=== PATIENT | female | born 1965 | race Caucasian/White ===

== ENCOUNTER → 2017-12-04 | Outpatient (CLI) | payer BC ==
--- NOTE | 2017-12-04 11:39 | MM ---
Reason for exam: screening (asymptomatic). Last mammogram was performed 2 years and 5 months ago. History: Patient is nulliparous. Took hormonal contraceptives for 1 year beginning at age 47. Taking estrogen for 2 years beginning at age 50. Taking progesterone for 2 years beginning at age 50. Physical Findings: A clinical breast exam by your physician is recommended on an annual basis and results should be correlated with mammographic findings. MG Screening Mammo w CAD Bilateral CC, MLO, and XCCL view(s) were taken. Prior study comparison: June 23, 2015, bilateral MG 3d screening mammo w/cad. May 24, 2014, bilateral MG screening mammo w CAD. The breast tissue is heterogeneously dense. This may lower the sensitivity of mammography. No suspicious abnormality. No significant changes when compared with prior studies. ASSESSMENT: Negative, BI-RAD 1 RECOMMENDATION: Routine screening mammogram of both breasts in 1 year.
== END ==
LOC: RADMAMWWP 07:40
PROVIDERS: ATTEND Family Medicine
DX: Z12.31 Encounter for screening mammogram for malignant neoplasm of breast (principal)
CPT/HCPCS: 77067

== ENCOUNTER → 2019-02-24 | Outpatient (CLI) | payer BC ==
--- NOTE | 2019-02-25 13:56 | MM ---
Reason for exam: screening (asymptomatic). Last mammogram was performed 1 year and 3 months ago. History: Patient is nulliparous. Took hormonal contraceptives for 1 year beginning at age 47. Taking estrogen for 2 years beginning at age 50. Taking progesterone for 2 years beginning at age 50. Physical Findings: A clinical breast exam by your physician is recommended on an annual basis and results should be correlated with mammographic findings. MG Screening Mammo w CAD Bilateral CC and MLO view(s) were taken. Prior study comparison: December 04, 2017, bilateral MG screening mammo w CAD. June 23, 2015, bilateral MG 3d screening mammo w/cad. The breast tissue is heterogeneously dense. This may lower the sensitivity of mammography. Finding #1: There is a 7 mm equal density (isodense), obscured mass in the upper inner quadrant of the right breast. Finding #2: There are indeterminate grouped/clustered calcifications in the central position of the left breast. ASSESSMENT: Incomplete: need additional imaging evaluation, BI-RAD 0 RECOMMENDATION: Special view mammogram of both breasts. If lesion persists on supplemental views, image directed ultrasound is recommended. [facility] will attempt to contact patient to return for supplemental views and ultrasound if indicated.
== END | disposition home or self-care (01) ==
LOC: RADMAMWWP 11:27
PROVIDERS: ATTEND Family Medicine
DX: Z12.31 Encounter for screening mammogram for malignant neoplasm of breast (principal)
CPT/HCPCS: 77067

== ENCOUNTER → 2019-03-09 | Outpatient (CLI) | payer BC ==
--- NOTE | 2019-03-10 08:59 | MM ---
Reason for exam: additional evaluation requested from abnormal screening. Last mammogram was performed less than 1 month ago. History: Patient is nulliparous. Took hormonal contraceptives for 1 year beginning at age 47. Taking estrogen for 2 years beginning at age 50. Taking progesterone for 2 years beginning at age 50. Physical Findings: Nurse did not find any significant physical abnormalities on exam. MG Work Up Mamm w CAD BILAT Bilateral LM view(s) were taken. Spot compression CC and spot compression MLO view(s) were taken of the right breast. CC with magnification and LM with magnification view(s) were taken of the left breast. Prior study comparison: February 24, 2019, bilateral MG screening mammo w CAD. December 04, 2017, bilateral MG screening mammo w CAD. Finding #1: There is a 8 mm indistinct oval mass located 3 cm from the nipple in the upper inner quadrant, anterior position of the right breast. Finding #2: There are indeterminate grouped and regional heterogeneous calcifications in the left breast. These results were verbally communicated with the patient and result sheet given to the patient on 03/09/19. ASSESSMENT: Suspicious, BI-RAD 4 Suspicious, BI-RAD 4 abnormality in the left breast. Incomplete: need additional imaging evaluation, BI-RAD 0 of the right breast. RECOMMENDATION: Ultrasound of the right breast. Stereotactic core biopsy of the left breast. (1-2 sites) Called Dr. Bruce with mammographic findings and has scheduled an appointment for the patient for 03/26/19 at 10:[address] Treadwell. Biopsy scheduled for 04/01/19 at 8:00. PRELIMINARY REPORT CALLED AND FAXED TO DR. TREADWELL ON 03/10/19.
--- NOTE | 2019-03-10 09:00 | USB ---
Reason for exam: additional evaluation requested from abnormal screening. History: Patient is nulliparous. Took hormonal contraceptives for 1 year beginning at age 47. Taking estrogen for 2 years beginning at age 50. Taking progesterone for 2 years beginning at age 50. US Breast Workup Limited RT Right limited breast ultrasound including focal area of concern, retroareolar and axilla demonstrates a 8 x 3 x 6mm oval, lobular, cystic lesion at 3 o'clock. These results were verbally communicated with the patient and result sheet given to the patient on 03/09/19. ASSESSMENT: Probably benign, BI-RAD 3 RECOMMENDATION: Ultrasound of the right breast in 6 months.
== END | disposition home or self-care (01) ==
LOC: RADMAMWWP 13:24
PROVIDERS: ATTEND Family Medicine
DX: R92.8 Other abnormal and inconclusive findings on diagnostic imaging of breast (principal)
CPT/HCPCS: 77066

== ENCOUNTER → 2019-03-25 | Outpatient (CLI) | payer BC ==
[2019-03-25 11:58] VITALS: BP 113/70; PULSE 69; RESP 16; TEMP 97.8; BMI 31.3
--- NOTE | 2019-03-25 12:26 | P.GSHP ---
History of Present Illness H&P Date: 03/25/19 Chief Complaint: Abnormal radiographic findings The patient is a 53-year-old white female who had a routine mammogram performed on 8718. This was felt to be incomplete and additional views of both breasts were recommended as well as an ultrasound of the right breast. On additional views it was felt that there was an 8 mm indistinct mass in the right breast for which ultrasound was recommended and ultrasound revealed a cystic lesion for which repeat right breast ultrasound in 6 months was recommended. In the left breast there were indeterminate group in regional heterogeneous calcifications. Stereotactic core biopsy of one possibly 2 areas in the left breast were recommended. The patient has not felt anything in her breasts. She gets yearly mammograms. She does not complain of any nipple discharge or skin changes. She has not had any history of trauma or infection in the breast. She has not had any breast biopsies. Family history: cousin maternal: leukemia maternal uncle: prostate cancer, bladder cancer, skin cancer father: prostate, skin cancer Hormonal history: Menarche:10 G1 etopic, no children menopause: 53 BCP: 20 years hormones: on estradiol patch for 2 years, progesterone 2 years; was having hot flashes Past Surgical History: 1. ectopic 2. foot surgery Past Medical History: HTN Social History: smoke: none alcohol: occasional drugs: none - Constitutional Comment: taking hormones Constitutional: Reports sweats - EENT Eyes: denies blurred vision, denies pain Ears: deny: decreased hearing, tinnitus Ears, nose, mouth and throat: Denies headache, Denies sore throat - Breasts Breasts: bilateral: as per HPI - Cardiovascular Cardiovascular: Reports high blood pressure, Denies chest pain, Denies shortness of breath - Respiratory Respiratory: Denies cough, Denies 7 - Gastrointestinal Gastrointestinal: Denies abdominal pain, Denies diarrhea, Denies nausea, Denies vomiting - Genitourinary (Female) Genitourinary: Denies dysuria, Denies hematuria - Menstruation Menstruation: Reports postmenopausal - Musculoskeletal Comment: arthritis Musculoskeletal: Reports myalgias - Integumentary Integumentary: Denies pruritus, Denies rash - Neurological Neurological: Denies numbness, Denies weakness - Psychiatric Psychiatric: Reports anxiety - Endocrine Endocrine: Denies fatigue, Denies weight change - Hematologic/Lymphatic Comment: none - Allergic/Immunologic Allergic/Immunologic: Reports as per HPI Past Medical History Past Medical History: No Reported History History of Any Multi-Drug Resistant Organisms: None Reported Past Surgical History: Orthopedic Surgery Additional Past Surgical History / Comment(s): left foot surgery, surgery for ectopic Past Anesthesia/Blood Transfusion Reactions: Motion Sickness Smoking Status: Never smoker Past Alcohol Use History: Occasional - Past Family History Father Family Medical History: Cancer Medications and Allergies Home Medications Medication Instructions Recorded Confirmed Type Chlorthalidone 25 mg PO DAILY 03/23/19 03/25/19 History Estradiol [Estradiol 0.05 MG Patch] 1 patch TRANSDERM WEEKLY 03/23/19 03/25/19 History Lisinopril [Zestril] 5 mg PO DAILY 03/23/19 03/25/19 History Progesterone, Micronized 100 mg PO HS 03/23/19 03/25/19 History [Progesterone] Multivitamin [Multivitamins Adult 1 each PO DAILY 03/25/19 03/25/19 History Gummies] Allergies Allergy/AdvReac Type Severity Reaction Status Date / Time No Known Allergies Allergy Verified 03/25/19 11:53 Surgical - Exam Vital Signs Temp Pulse Resp BP Pulse Ox 97.8 F 69 16 113/70 97 03/25/19 11:55 03/25/19 11:55 03/25/19 11:55 03/25/19 11:55 03/25/19 11:55 BMI 31.3 - General well developed, well nourished, no distress - Eyes normal ocular movement - ENT no hearing loss, no congestion - Neck no masses, trachea midline - Respiratory normal respiratory effort, clear to auscultation - Cardiovascular Rhythm: regular Heart Sounds: normal: S1, S2 - Abdomen Abdomen: soft, non tender, no guarding, no rigid, no rebound - Integumentary normal turgor - Neurologic no disoriented, no combative - Musculoskeletal normal gait, normal posture - Psychiatric oriented to time, oriented to person, oriented to place, speech is normal, memory intact Breast exam: Right breast: Multiple positional exam fibrocystic changes, no dominant masses or nodules of concern, but dense breast Right axilla: No adenopathy of concern Left breast: Multiple positional exam fibrocystic changes, ends breast no dominant masses or nodules of concern Left axilla: No adenopathy of concern Results Mammogram and ultrasound results reviewed Assessment and Plan Assessment: Impression: 1. Fibrocystic breast changes 2. Abnormal mammogram left breast, abnormal ultrasound right breast 3. Family history of cancer 4. Hypertension Plan: 1. Right breast repeat ultrasound in 6 months with physician exam at that time 2. Left breast stereotactic core biopsy of one possibly 2 sites to be determined on the day of the biopsy 3. Medical management of medical conditions Cc: Dr. Bruce The risk and benefits of stereotactic core biopsy discussed with the patient and she wishes to proceed.
--- NOTE | 2019-03-25 12:29 | P.PN ---
Progress Note - Text Progress Note Date: 03/25/19 We have discussed the fact that she is taking hormone therapy, she is going to stop hormone therapy until after results of the biopsy come back.
== END ==
LOC: WWCWWP 11:46
PROVIDERS: ATTEND Surgery
DX: Z53.9 Procedure and treatment not carried out, unspecified reason (principal)

== ENCOUNTER → 2019-04-01 | Day surgery (SDC) | payer BC ==
[2019-04-01 07:23] VITALS: RESP 16; BMI 31.3
--- NOTE | 2019-04-01 09:10 | P.PCN ---
Date of Procedure: 04/01/19 Preoperative Diagnosis: Abnormal mammogram left breast Postoperative Diagnosis: same, 2 areas of microcalcification of concern Procedure(s) Performed: Stereotactic core biopsy 2 areas of concern left breast Anesthesia: local Surgeon: Tatyana Treadwell Estimated Blood Loss (ml): 1 Pathology: other (Breast tissue) Condition: stable Disposition: same day Indications for Procedure: Microcalcifications of concern 2 areas left breast Operative Findings: Microcalcifications of concern noted in the biopsy specimens Description of Procedure: The patient had a mammogram revealing microcalcifications of concern in the left breast. 2 areas were recommended for targeting and stereotactic core biopsy. The risk and benefits of the procedure were discussed with the patient and she wished to proceed. The patient was brought to the stereotactic core biopsy room and positioned on the lo-rad table. A rrt film was obtained. The lesions of concern were identified. 2 areas of concern were targeted CBC The most posterior site was approached first. The needle was driven to the correct coordinates. The skin was prepped using Betadine. 20 mL of 1% lidocaine were used to anesthetize the area of concern. A 9-gauge vacuum assisted rotating core biopsy needle was driven to the correct coordinates. 12 core biopsies were obtained. Radiograph of the specimen revealed microcalcifications were in the specimen and the area had been adequately sampled. A Top-lining marker was placed. The needle was withdrawn. The needle was then noted and able to the second targeted area. The area was anesthetized using 25 mL of lidocaine. The needle was driven to the correct coordinates. 12 core biopsies were obtained. Radiograph of the specimen revealed microcalcifications in the specimen indicating that the area had been adequately targeted. A tri-bessie marker was placed. The markers were noted to be in the correct location. The patient tolerated the procedure in stable condition. The specimens were sent to pathology. The patient will follow with Dr. Lockhart next week. There were no immediate postoperative complications.
[2019-04-01 09:51] VITALS: BP 129/78; PULSE 81; TEMP 98
--- NOTE | 2019-04-01 10:04 | MM ---
EXAMINATION TYPE: MG stereo VAD BX LT, MG stereo VAD BX addl LT DATE OF EXAM: 04/01/2019 COMPARISON: Prior mammogram March 09, 2019 and older mammograms. CLINICAL HISTORY: Abnormal mammogram. TECHNIQUE: Stereotactic guided core biopsy of left breast 2 sites. FINDINGS: The procedure of stereotactic guided core biopsy was explained to the patient. Benefits, alternatives, and risks were discussed. An informed consent was then obtained. Calcifications are centrally in the breast making ideal pathway not as important. I performed the localization, then surgeon, Dr. Treadwell performed the remainder of the procedure. A vacuum assisted biopsy gun was used to obtain multiple core samples. The patient tolerated the procedure well without any immediate complication. The patient was kept in the radiology department for short stay after the procedure and then discharged home in stable condition. Calcifications are identified in specimen mammogram. Post biopsy mammogram shows placement of 2 biopsy clips, cavities from biopsy are noted in close proximity on cc view but somewhat farther apart on true lateral image. I was not present nor performed procedure, there may be 3 biopsy cavities. This would only be important if pathology results are not benign. Some residual regional calcifications centrally in the left breast are present. IMPRESSION: SUCCESSFUL, UNCOMPLICATED STEREOTACTIC GUIDED CORE BIOPSY OF AREA OF CONCERN IN THE LEFT BREAST, FULL PATHOLOGY RESULTS TO FOLLOW. Low to intermediate index of suspicion noted at time of procedure. Pathology Results: Malignant A. LEFT BREAST, SITE A POSTERIOR, CORE BIOPSY: Ductal carcinoma in situ (DCIS), Grade 2 with associated calcifications. See Surgical Pathology Cancer Case Summary and Comment. B. LEFT BREAST, SITE B ANTERIOR, CORE BIOPSY: Ductal carcinoma in situ (DCIS), Grade 2 with associated calcifications. See Surgical Pathology Cancer Case Summary. Recommendation Surgical consult of the left breast. Length of calcifications, 5cm, unlikely candidate for conservative treatment. MTDD
== END ==
LOC: RADMAMWWP 06:45
PROVIDERS: ATTEND Surgery
DX: D05.12 Intraductal carcinoma in situ of left breast (principal)
CPT/HCPCS: 88305; 88342; 88341; 19081; 19082; A4648; J2001

== ENCOUNTER → 2019-04-09 | Outpatient (CLI) | payer BC ==
[2019-04-09 09:03] VITALS: BP 118/81; PULSE 72; RESP 16; TEMP 97.8; BMI 31.3
--- NOTE | 2019-04-09 10:13 | P.PN ---
Subjective Progress Note Date: 04/09/19 Principal diagnosis: multifocal DCIS The patient is a 53-year-old white female who had a routine mammogram performed on 8718. This was felt to be incomplete and additional views of both breasts were recommended as well as an ultrasound of the right breast. On additional views it was felt that there was an 8 mm indistinct mass in the right breast for which ultrasound was recommended and ultrasound revealed a cystic lesion for which repeat right breast ultrasound in 6 months was recommended. In the left breast there were indeterminate group in regional heterogeneous calcifications. Stereotactic core biopsy of one possibly 2 areas in the left breast were recommended. The patient has not felt anything in her breasts. She gets yearly mammograms. She does not complain of any nipple discharge or skin changes. She has not had any history of trauma or infection in the breast. She has not had any breast biopsies. fStero tactic core biopsy of two areas in [facility] left breast were preformed on 04-01-19. Pathology from both of the sites was positive for DCIS. Family history: cousin maternal: leukemia maternal uncle: prostate cancer, bladder cancer, skin cancer father: prostate, skin cancer Hormonal history: Menarche:10 G1 etopic, no children menopause: 53 BCP: 20 years hormones: on estradiol patch for 2 years, progesterone 2 years; was having hot flashes Past Surgical History: 1. ectopic 2. foot surgery Past Medical History: HTN Social History: smoke: none alcohol: occasional drugs: none - Constitutional Comment: taking hormones Constitutional: Reports sweats - EENT Eyes: denies blurred vision, denies pain Ears: deny: decreased hearing, tinnitus Ears, nose, mouth and throat: Denies headache, Denies sore throat - Breasts Breasts: bilateral: as per HPI - Cardiovascular Cardiovascular: Reports high blood pressure, Denies chest pain, Denies shortness of breath - Respiratory Respiratory: Denies cough, Denies 7 - Gastrointestinal Gastrointestinal: Denies abdominal pain, Denies diarrhea, Denies nausea, Denies vomiting - Genitourinary (Female) Genitourinary: Denies dysuria, Denies hematuria - Menstruation Menstruation: Reports postmenopausal - Musculoskeletal Comment: arthritis Musculoskeletal: Reports myalgias - Integumentary Integumentary: Denies pruritus, Denies rash - Neurological Neurological: Denies numbness, Denies weakness - Psychiatric Psychiatric: Reports anxiety - Endocrine Endocrine: Denies fatigue, Denies weight change - Hematologic/Lymphatic Comment: none - Allergic/Immunologic Allergic/Immunologic: Reports as per HPI Past Medical History Past Medical History: No Reported History History of Any Multi-Drug Resistant Organisms: None Reported Past Surgical History: Orthopedic Surgery Additional Past Surgical History / Comment(s): left foot surgery, surgery for ectopic Past Anesthesia/Blood Transfusion Reactions: Motion Sickness Smoking Status: Never smoker Past Alcohol Use History: Occasional - Past Family History Father Family Medical History: Cancer Objective - Vital Signs Vital signs: Vital Signs Temp 97.8 F 04/09/19 08:55 Pulse 72 04/09/19 08:55 Resp 16 04/09/19 08:55 BP 118/81 04/09/19 08:55 Pulse Ox Intake & Output 04/08/19 04/09/19 04/09/19 18:59 06:59 18:59 Weight 90.718 kg - Exam BMI 31.1 - Constitutional General appearance: Present: obese - EENT Eyes: Present: EOMI ENT: Present: hearing grossly normal - Neck Neck: Present: normal ROM - Respiratory Respiratory: bilateral: CTA - Cardiovascular Rhythm: regular Heart sounds: normal: S1, S2 - Integumentary Integumentary: Present: normal turgor - Musculoskeletal Musculoskeletal: Present: gait normal - Psychiatric Psychiatric: Present: A&O x's 3, appropriate affect, intact judgment & insight - Additional findings Additional findings: Left breast: Biopsy site clean and dry no Evidence of infection Assessment and Plan Assessment: Impression: 1. 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 Family history of cancer 3. Hypertension I showed the patient her mammogram. We have reviewed in detail ductal carcinoma in situ and the treatment options. Secondary to the fact that she has a small b reast and the disease appears to be multifocal appreciated a better cosmetic result with mastectomy and reconstruction than an attempt at lumpectomy which would need to be extensive and radiation therapy. We have also talked about sentinel node biopsy and this will most likely be offered secondary to the multifocal nature of the disease. The patient does not want radiation therapy and would rather have a mastectomy. We are going to schedule her to see the plastic surgeon. Her case is going to be presented at tumor board. We have discussed nipple sparing mastectomy versus skin sparing mastectomy and we will make a decision after she was seen by plastic surgery. Plan: 1. The platelet Dr. Jarrett 2. Presentation at tumor board 3. Mastectomy with immediate reconstruction, sentinel node biopsy was discussed and we'll most likely be performed secondary to the multifocal nature of the disease. CC. Dr. Bruce
== END | disposition home or self-care (01) ==
LOC: WWCWWP 08:46
PROVIDERS: ATTEND Surgery
DX: Z53.9 Procedure and treatment not carried out, unspecified reason (principal)

== ENCOUNTER → 2019-05-07 | Day surgery (SDC) | payer BC ==
[2019-05-07 10:59] VITALS: RESP 16; TEMP 98.1; BMI 30.4
[2019-05-07 12:17] VITALS: BP 112/79; PULSE 78
--- NOTE | 2019-05-07 12:20 | USB ---
EXAMINATION TYPE: US biopsy breast VAD RT, MG diagnostic mammo RT wo CAD DATE OF EXAM: 05/07/2019 CLINICAL HISTORY: R92.8 Abnormal Mammogram. TECHNIQUE: Ultrasound guided core biopsy of right breast. COMPARISON: Right breast ultrasound dated 03/09/2019 FINDINGS: The procedure of ultrasound guided core biopsy was explained to the patient. Benefits, alternatives, and risks were discussed. An informed consent was then obtained. Preprocedural timeout was performed. The patient was placed in supine positioning for imaging and for the procedure. The overlying skin was prepped and draped in usual sterile fashion. 20 cc of 1% lidocaine was used as anesthetic into the skin and subcutaneous tissue up to the taller than wide 8mm lobular cystic mass at the 3:00 position in the right breast. Under ultrasound guidance, a 12-gauge vacuum assisted biopsy gun device was used to obtain 3 core samples with focal collapse of the cystic structure on second biopsy pass. Following this, a ribbon-shaped biopsy marker was left at the site of biopsy. Postprocedure mammogram demonstrates appropriate biopsy marker placement The patient tolerated the procedure well without any immediate complication. The patient was kept in the radiology department for short stay after the procedure and then discharged home in stable condition. IMPRESSION: Successful, uncomplicated ultrasound guided core biopsy of an 8 mm taller than wide cystic mass at the 3:00 position in the right breast breast, full pathology results to follow. Pathology Results: Benign RIGHT BREAST, 3:00, ULTRASOUND GUIDED CORE BIOPSY: Fibrocystic changes including apocrine cyst and fibrosis. Recommendation Follow up mammogram of the right breast in 6 months. GERRY
== END | disposition home or self-care (01) ==
LOC: RADUSWWP 10:34
PROVIDERS: ATTEND Surgery
DX: N60.11 Diffuse cystic mastopathy of right breast (principal)
CPT/HCPCS: 88305; 77065; 19083; A4648; J2001

== ENCOUNTER → 2019-05-27 | Outpatient (CLI) | payer BC ==
--- NOTE | 2019-05-27 08:52 | P.PN ---
Subjective multifocal DCIS The patient is a 53-year-old white female who had a routine mammogram performed on 8718. This was felt to be incomplete and additional views of both breasts were recommended as well as an ultrasound of the right breast. On additional views it was felt that there was an 8 mm indistinct mass in the right breast for which ultrasound was recommended and ultrasound revealed a cystic lesion for which repeat right breast ultrasound in 6 months was recommended. In the left breast there were indeterminate group in regional heterogeneous calcifications. Stereotactic core biopsy of one possibly 2 areas in the left breast were recommended. The patient has not felt anything in her breasts. She gets yearly mammograms. She does not complain of any nipple discharge or skin changes. She has not had any history of trauma or infection in the breast. She has not had any breast biopsies. Stero tactic core biopsy of two areas in the left breast were preformed on 04-01-19. Pathology from both of the sites was positive for DCIS. In the right breast there was an area of concern and she underwent ultrasound- guided core biopsy of this area. Ultrasound core biopsy revealed benign fibrocystic disease. The patient has met with plastic surgery and wishes bilateral mastectomy to be preformed. Family history: cousin maternal: leukemia maternal uncle: prostate cancer, bladder cancer, skin cancer father: prostate, skin cancer Hormonal history: Menarche:10 G1 etopic, no children menopause: 53 BCP: 20 years hormones: on estradiol patch for 2 years, progesterone 2 years; was having hot flashes Past Surgical History: 1. ectopic 2. foot surgery Past Medical History: HTN Social History: smoke: none alcohol: occasional drugs: none - Constitutional Comment: taking hormones Constitutional: Reports sweats - EENT Eyes: denies blurred vision, denies pain Ears: deny: decreased hearing, tinnitus Ears, nose, mouth and throat: Denies headache, Denies sore throat - Breasts Breasts: bilateral: as per HPI - Cardiovascular Cardiovascular: Reports high blood pressure, Denies chest pain, Denies shortness of breath - Respiratory Respiratory: Denies cough, Denies 7 - Gastrointestinal Gastrointestinal: Denies abdominal pain, Denies diarrhea, Denies nausea, Denies vomiting - Genitourinary (Female) Genitourinary: Denies dysuria, Denies hematuria - Menstruation Menstruation: Reports postmenopausal - Musculoskeletal Comment: arthritis Musculoskeletal: Reports myalgias - Integumentary Integumentary: Denies pruritus, Denies rash - Neurological Neurological: Denies numbness, Denies weakness - Psychiatric Psychiatric: Reports anxiety - Endocrine Endocrine: Denies fatigue, Denies weight change - Hematologic/Lymphatic Comment: none - Allergic/Immunologic Allergic/Immunologic: Reports as per HPI Past Medical History Past Medical History: No Reported History History of Any Multi-Drug Resistant Organisms: None Reported Past Surgical History: Orthopedic Surgery Additional Past Surgical History / Comment(s): left foot surgery, surgery for ectopic Past Anesthesia/Blood Transfusion Reactions: Motion Sickness Smoking Status: Never smoker Past Alcohol Use History: Occasional - Past Family History Father Family Medical History: Cancer Objective - Constitutional General appearance: Present: average body habitus - EENT Eyes: Present: EOMI ENT: Present: hearing grossly normal - Respiratory Respiratory: bilateral: CTA - Cardiovascular Rhythm: regular Heart sounds: normal: S1, S2 - Gastrointestinal General gastrointestinal: Present: soft - Integumentary Integumentary: Present: normal turgor - Musculoskeletal Musculoskeletal: Present: gait normal - Psychiatric Psychiatric: Present: A&O x's 3, appropriate affect, intact judgment & insight - Additional findings Additional findings: breast exam: right breast: no infection, no masses right axilla: no adenopathy of concern left breast : no masses left axilla: no adenopathy of concern Assessment and Plan Assessment: Impression: 1. left breast multifocal DCIS 2. right breast fibrocystic disease Plan: 1. bilateral skinsparing mastectomy and reconstruction 2. left sentinal node biopsy Risk and benefits discussed with the patient and she wishes to proceed. CC: DR. Bruce
--- NOTE | 2019-05-27 10:25 | ECHOF ---
Referral Reason:R94.31 Abn EKG MEASUREMENTS -------- HEIGHT: 170.2 cm WEIGHT: 93.0 kg BP: 112/6 RVIDd: 3.0 cm (< 3.3) IVSd: 1.1 cm (0.6 - 1.1) LVIDd: 4.1 cm (3.9 - 5.3) LVPWd: 0.9 cm (0.6 - 1.1) IVSs: 1.5 cm LVIDs: 2.5 cm LVPWs: 1.5 cm LA Diam: 3.4 cm (2.7 - 3.8) LAESV Index (A-L): 16.19 ml/m Ao Diam: 3.0 cm (2.0 - 3.7) AV Cusp: 2.1 cm (1.5 - 2.6) MV EXCURSION: 18.221 mm (> 18.000) MV EF SLOPE: 110 mm/s (70 - 150) EPSS: 0.5 cm MV E Alex: 0.58 m/s MV DecT: 191 ms MV A Alex: 0.56 m/s MV E/A Ratio: 1.05 RAP: 5.00 mmHg RVSP: 26.36 mmHg FINDINGS -------- Sinus rhythm. This was a technically adequate study. The left ventricular size is normal. There is borderline concentric left ventricular hypertrophy. Overall left ventricular systolic function is normal with, an EF between 60 - 65 %. The right ventricle is normal in size. Normal LA size by volume 22+/-6 ml/m2. The right atrium is normal in size. Interatrial and interventricular septum intact. The aortic valve is trileaflet and appears structurally normal. The mitral valve is normal. Mild tricuspid regurgitation present. Right ventricular systolic pressure is normal at < 35 mmHg. There is no pulmonic regurgitation present. The aortic root size is normal. IVC Not well visulized. There is no pericardial effusion. CONCLUSIONS -------- 1. Sinus rhythm. 2. This was a technically adequate study. 3. The left ventricular size is normal. 4. There is borderline concentric left ventricular hypertrophy. 5. Overall left ventricular systolic function is normal with, an EF between 60 - 65 %. 6. The right ventricle is normal in size. 7. Normal LA size by volume 22+/-6 ml/m2. 8. The right atrium is normal in size. 9. Interatrial and interventricular septum intact. 10. The aortic valve is trileaflet and appears structurally normal. 11. The mitral valve is normal. 12. Mild tricuspid regurgitation present. 13. Right ventricular systolic pressure is normal at < 35 mmHg. 14. There is no pulmonic regurgitation present. 15. The aortic root size is normal. 16. IVC Not well visulized. 17. There is no pericardial effusion. SUBSTITUTE TEACHER: Jud Martinez RDCS
--- NOTE | 2019-05-27 10:46 | EST ---
EXERCISE STRESS AGE: 53 SEX: F HT: 67" WT: 205 PROTOCOL: Wilberto Stress Test STAGE: 3 DURATION OF EXERCISE: 8:00 HEART RATE REST: 81 BLOOD PRESSURE REST: 112/76 MAXIMUM HEART RATE ACHIEVED: 142 MAXIMUM BLOOD PRESSURE: 189/50 85% MPHR: 140 100% MPHR: 165 METS: 9.7 INDICATIONS: Chest pain. CLINICAL INFORMATION: STRESS DATA: Heart rate is 81, pressure is 112/76 mmHg. Baseline EKG showed sinus mechanism. The patient exercised on the treadmill according to Wilberto protocol for a total of 8 minutes and achieved 9.7 METs. Max heart rate was 142, which is about 86% of maximum predicted heart rate. Maximum blood pressure was 189/50 mmHg. Clinically, the patient did not have any symptoms of chest pain or chest discomfort during the testing or on recovery and the EKG did not show any significant ST or T-wave abnormalities concerning for ischemia. CONCLUSION: 1. Excellent exercise tolerance. 2. Normal EKG in response to exercise. 3. Normal echocardiogram study normal. No 2nd excellent exercise tolerance. 4. Normal EKG in response to exercise. 5. Essentially normal stress test for the patient. MMODL / IJN: [id number] /
== END | disposition home or self-care (01) ==
LOC: RADNMMAIN 08:48
PROVIDERS: ATTEND Family Medicine
DX: I07.1 Rheumatic tricuspid insufficiency (principal)
CPT/HCPCS: 93017; 93306

== ENCOUNTER → 2019-05-27 | Outpatient (CLI) | payer BC ==
[2019-05-27 08:09] VITALS: BP 110/65; PULSE 83; RESP 18; TEMP 98.5; BMI 32.1
--- NOTE | 2019-05-28 17:34 | P.PN ---
Subjective Progress Note Date: 05/28/19 Principal diagnosis: multifocal DCIS multifocal DCIS The patient is a 53-year-old white female who had a routine mammogram performed on 8718. This was felt to be incomplete and additional views of both breasts were recommended as well as an ultrasound of the right breast. On additional views it was felt that there was an 8 mm indistinct mass in the right breast for which ultrasound was recommended and ultrasound revealed a cystic lesion for which repeat right breast ultrasound in 6 months was recommended. In the left breast there were indeterminate group in regional heterogeneous calcifications. Stereotactic core biopsy of one possibly 2 areas in the left breast were recommended. The patient has not felt anything in her breasts. She gets yearly mammograms. She does not complain of any nipple discharge or skin changes. She has not had any history of trauma or infection in the breast. She has not had any breast biopsies. Stero tactic core biopsy of two areas in the left breast were preformed on 04-01-19. Pathology from both of the sites was positive for DCIS. In the right breast there was an area of concern and she underwent ultrasound- guided core biopsy of this area. Ultrasound core biopsy revealed benign fibrocystic disease. The patient has met with plastic surgery and wishes bilateral mastectomy to be preformed. Family history: cousin maternal: leukemia maternal uncle: prostate cancer, bladder cancer, skin cancer father: prostate, skin cancer Hormonal history: Menarche:10 G1 etopic, no children menopause: 53 BCP: 20 years hormones: on estradiol patch for 2 years, progesterone 2 years; was having hot flashes Past Surgical History: 1. ectopic 2. foot surgery Past Medical History: HTN Social History: smoke: none alcohol: occasional drugs: none - Constitutional Comment: taking hormones Constitutional: Reports sweats - EENT Eyes: denies blurred vision, denies pain Ears: deny: decreased hearing, tinnitus Ears, nose, mouth and throat: Denies headache, Denies sore throat - Breasts Breasts: bilateral: as per HPI - Cardiovascular Cardiovascular: Reports high blood pressure, Denies chest pain, Denies shortness of breath - Respiratory Respiratory: Denies cough, Denies 7 - Gastrointestinal Gastrointestinal: Denies abdominal pain, Denies diarrhea, Denies nausea, Denies vomiting - Genitourinary (Female) Genitourinary: Denies dysuria, Denies hematuria - Menstruation Menstruation: Reports postmenopausal - Musculoskeletal Comment: arthritis Musculoskeletal: Reports myalgias - Integumentary Integumentary: Denies pruritus, Denies rash - Neurological Neurological: Denies numbness, Denies weakness - Psychiatric Psychiatric: Reports anxiety - Endocrine Endocrine: Denies fatigue, Denies weight change - Hematologic/Lymphatic Comment: none - Allergic/Immunologic Allergic/Immunologic: Reports as per HPI Past Medical History Past Medical History: No Reported History History of Any Multi-Drug Resistant Organisms: None Reported Past Surgical History: Orthopedic Surgery Additional Past Surgical History / Comment(s): left foot surgery, surgery for ectopic Past Anesthesia/Blood Transfusion Reactions: Motion Sickness Smoking Status: Never smoker Past Alcohol Use History: Occasional - Past Family History Father Family Medical History: Cancer Objective - Constitutional General appearance: Present: average body habitus - EENT Eyes: Present: EOMI ENT: Present: hearing grossly normal - Respiratory Respiratory: bilateral: CTA - Cardiovascular Rhythm: regular Heart sounds: normal: S1, S2 - Gastrointestinal General gastrointestinal: Present: soft - Integumentary Integumentary: Present: normal turgor - Musculoskeletal Musculoskeletal: Present: gait normal - Psychiatric Psychiatric: Present: A&O x's 3, appropriate affect, intact judgment & insight - Additional findings Additional findings: breast exam: right breast: no infection, no masses right axilla: no adenopathy of concern left breast : no masses left axilla: no adenopathy of concern Assessment and Plan Assessment: Objective - Vital Signs Vital signs: Vital Signs Temp 98.5 F 05/27/19 08:00 Pulse 83 05/27/19 08:00 Resp 18 05/27/19 08:00 BP 110/65 05/27/19 08:00 Pulse Ox 96 05/27/19 08:00 Intake & Output 05/27/19 05/28/19 05/28/19 18:59 06:59 18:59 Weight 92.986 kg - Constitutional General appearance: Present: average body habitus - EENT Eyes: Present: EOMI ENT: Present: hearing grossly normal - Neck Neck: Present: normal ROM - Respiratory Respiratory: bilateral: CTA - Cardiovascular Rhythm: regular Heart sounds: normal: S1, S2 - Gastrointestinal General gastrointestinal: Present: soft - Integumentary Integumentary: Present: normal turgor - Musculoskeletal Musculoskeletal: Present: gait normal - Psychiatric Psychiatric: Present: A&O x's 3, appropriate affect, intact judgment & insight - Additional findings Additional findings: Breast examination: Taken from recent exam Right breast: Multiple positional exam no dominant masses or nodules of concern Right axilla: No adenopathy of concern Left breast: Biopsy site was clean and dry, no evidence of infection multiple positional exam about a mass or nodules of concern Left axilla: No adenopathy of concern Assessment and Plan Assessment: Impression: 1. 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 Family history of cancer 3. Hypertension Initial the patient mammogram. We reviewed in detail ductal carcinoma in situ in the treatment options. Secondary to the fact that she has small past the disease patient multifocal HCC is felt that she will get a better cosmetic result with mastectomy and reconstruction in an attempt at lumpectomy. We have also talked about sentinel node biopsy and this will most likely be offered secondary to multifocal nature of the disease. Patient does not want radiation therapy and would rather have a mastectomy. The patient was seen by Dr. Jarrett and is operative for bilateral mastectomy. Plan: 1. Bilateral mastectomy with immediate reconstruction 2. [place] node biopsy possible axillary node dissection Haseeb and wilmer discussed benefits of the procedure discussed with the patient and she wishes to proceed.
== END | disposition home or self-care (01) ==
LOC: WWCWWP 07:36
PROVIDERS: ATTEND Surgery
DX: Z53.9 Procedure and treatment not carried out, unspecified reason (principal)

== ENCOUNTER 2019-06-01 07:39 | Observation (INO) | payer BC ==
[~2019-06-01 07:39] MED LIST: HYDROmorphone 0.5 MG/0.5 ML SYRINGE IVP PRN; LACTATED RINGERS 1,000 ML IV SCH; MIDAZOLAM 2 MG/2 ML VIAL IV PRN; Pre Op ABX Message 1 EACH MISC MISCELLANE ONE
[2019-06-01] MEDS ORDERED: LIDOCAINE 1% 20 ML VIAL (10MG/ML) FOR IV START INTRADERMA ONE (08:55)
[2019-06-01] MEDS: ONDANSETRON 4 MG/2 ML VIAL IVP ONE ×2 (08:57→15:02)
[2019-06-01] MEDS: DEXAMETHASONE SOD PHOSPHATE 10 MG/ML 1 ML VIAL IV ONE ×2 (08:57→19:38)
[2019-06-01] MEDS: SCOPOLAMINE 1.5MG/72HR PATCH TRANSDERM ONE ×2 (08:57→19:38)
[2019-06-01] MEDS: HEPARIN SODIUM,PORCINE 5,000 UNIT/ML 1 ML VIAL SQ ONE ×2 (09:05→19:38)
--- NOTE | 2019-06-01 09:30 | NM ---
EXAMINATION TYPE: NM sentinel node injection DATE OF EXAM: 06/01/2019 COMPARISON: 04/01/2019 HISTORY: Left breast cancer TECHNIQUE AND FINDINGS: The procedure of sentinel lymph node injection was explained to the patient. The benefits, alternatives, and risks were discussed. An informed consent was then obtained. Overlying skin is cleaned with sterile alcohol. Lidocaine buffered with bicarbonate was used as anes thetic into the skin and subcutaneous tissue surrounding the nipple. Following this, 512 uCi Tc 99m Tilmanocept was injected surrounding the outer aspect of the left nipple intradermally. The injection sites were massaged by mri technologist for 10 minutes after injection. T he patient tolerated the procedure well without any immediate complication. The patient was kept in the radiology department for short stay after the procedure and then taken to surgery for surgical pr ocedure what is presumed intraoperative gamma probe will be used for sentinel lymph node detection. IMPRESSION: Left breast radiotracer injection for sentinel node localization as above.
[2019-06-01] MEDS ORDERED: ePHEDrine SULFATE/0.9% NACL/PF 50 MG/5 ML SYRINGE IV ONE (09:31)
[2019-06-01] MEDS ORDERED: HYDROmorphone (PF) 1 MG/ML ONE (09:31)
[2019-06-01] MEDS ORDERED: PROPOFOL 10 MG/ML 20 ML VIAL IV ONE (09:31)
[2019-06-01] MEDS ORDERED: LIDOCAINE 1% INJ 10MG/ML (20 ML MDV) ONE (09:31)
[2019-06-01] MEDS ORDERED: PHENYLEPHRINE-0.9% NACL SYG 1 MG/10 ML SYRINGE ONE (09:31)
[2019-06-01] MEDS ORDERED: SUCCINYLCHOLINE CHLORIDE 100 MG/5 ML SYR IV ONE (09:31)
[2019-06-01] MEDS ORDERED: fentaNYL (PF) 50 MCG/ML 2 ML AMP ONE (09:31)
[2019-06-01] MEDS ORDERED: KETAMINE 10 MG/ML 20 ML VIAL ONE (09:31)
[2019-06-01] MEDS ORDERED: MIDAZOLAM 2 MG/2 ML VIAL ONE (09:31)
[2019-06-01] MEDS ORDERED: HEPARIN SODIUM,PORCINE 5,000 UNIT/ML 1 ML VIAL SQ ONE (09:48)
[2019-06-01] MEDS ORDERED: SODIUM CHLORIDE 0.9% 50 ML with ceFAZolin 2,000 MG IV ONE ×2 (09:50)
--- NOTE | 2019-06-01 09:50 | P.NAPBC ---
NAPBC Queries - NAPBC Queries Was patient's case review presented at [facility] tumor board? If no, comment.: Yes Was patient's pathology reviewed at [facility]? If no, comment.: Yes Was breast conservation surgery offered? If no, comment.: Yes Was sentinel node biopsy offered? If no, comment.: Yes Was diagnosis confirmed by percutaneous core biopsy? If no, comment.: Yes Is patient mastectomy patient?: Yes Was a preop referral to reconstructive surgeon offered?: Yes Clinical Stage: Stage 0
[2019-06-01] MEDS ORDERED: LACTATED RINGERS 1,000 ML IV ONE ×2 (11:43→13:27)
[2019-06-01] MEDS ORDERED: ONDANSETRON 4 MG/2 ML VIAL IVP PRN (12:04)
[2019-06-01] MEDS ORDERED: NALOXONE 0.4 MG/ML 1 ML VIAL IV PRN (12:04)
--- NOTE | 2019-06-01 12:04 | P.OP ---
Date of Procedure: 06/01/19 Preoperative Diagnosis: Left breast DCIS Postoperative Diagnosis: Same Procedure(s) Performed: Bilateral mastectomy, left sentinel node biopsy Anesthesia: LIBIA Surgeon: Tatyana Treadwell Estimated Blood Loss (ml): 25 IV fluids (ml): 800 Pathology: other (There is breast, left sentinel node) Condition: stable Disposition: floor Indications for Procedure: Left breast ductal carcinoma in situ multifocal Operative Findings: Dense breast tissue bilaterally, small left axillary sentinel node Description of Procedure: The patient was taken to the operating room and following induction of general anesthesia both breasts and florencia left axilla were prepped and draped in a sterile fashion. The right breast was approached initially. A circumareolar incision was made. A skin sparing mastectomy was performed. After the incision had been made in the skin through the skin into the subcutaneous tissue and skin hooks were applied. In this plane dissection was performed circumferentially. Dissection was performed using the electrocautery being careful to maintain hemostasis using the electrocautery as well as the Harmonic scalpel as necessary. Dissection was performed down to the chest wall. The breast was then removed from medial to lateral being careful to maintain hemostasis using the Harmonic scalpel. The breast was taken from the lateral attachments using the Harmonic scalpel. After this the wound was well irrigated. No evidence of bleeding was identified. The wound was packed. Sutures were placed on the breast for orientation. The left side was then approached. A sentinel node biopsy was performed first. Using the neoprobe the area of greatest radioactivity in the axilla was identified. An incision was made at the infra-axillary hairline. Dissection was carried down through the skin and subcutaneous tissue to the axillary tissue. Using the Harmonic scalpel the area of greatest radioactivity was identified. This was grasped using an Allis clamp. Dissection down to this area was performed and a very small node was identified. This was the only radioactive node identified in the axilla. The 10 second count was 36. 10 second background count was 12. No other adenopathy of concern was palpated or identified . Frozen section of this node revealed it to be negative for cancer. The deep tissues of the axilla were closed using a 3-0 Vicryl suture. Followed by closure of the skin with a 40 Monocryl. The left breast was then approached. Am Periareolar incision was made Through the skin and subcutaneous tissue. Skin hooks were placed and circumferential dissection down to the chest wall was performed. The breast was removed from medial to lateral. Vessels that were identified. Cauterized and/or divided using the Harmonic scalpel. Following removal of the specimen the specimen was marked for orientation. The wound was examined for hemostasis. Was well irrigated. After assured that hemostasis was attained the wound was packed and Dr. Jarrett from plastic surgery entered to the reconstruction. The patient tolerated this portion of the procedure in stable condition.
[2019-06-01 13:59] VITALS: RESP 16
[2019-06-01] MEDS: HYDROmorphone 1 MG/ML 1 ML SYRINGE IVP PRN ×2 (16:59→20:51)
[2019-06-01] MEDS: DEXTROSE 5%-0.45% NACL 1,000 ML IV SCH (17:05)
[2019-06-01] MEDS: HEPARIN SODIUM,PORCINE 5,000 UNIT/ML 1 ML VIAL SQ SCH (17:09)
--- NOTE | 2019-06-01 20:26 | OP ---
OPERATIVE REPORT DATE OF SURGERY: 06/01/2019. SURGEON: Norm Amanda MD PREOPERATIVE DIAGNOSES: 1. Acquired loss, left and right breast. 2. Left breast cancer. POSTOPERATIVE DIAGNOSES: 1. Acquired loss, left and right breast. 2. Left breast cancer. OPERATIVE PROCEDURES: 1. Immediate reconstruction of right breast following mastectomy with insertion of tissue licensed certified orthotist and subsequent outpatient expansion. 2. Immediate reconstruction of left breast following mastectomy with insertion of tissue licensed certified orthotist and subsequent outpatient expansion. 3. Implantation of reconstructive graft for right and left breast reconstruction. OPERATIVE INDICATIONS: The patient is a 53-year-old female who has been diagnosed with left breast cancer. She was referred to my care by her general surgeon, Dr. Treadwell, for breast reconstruction. The patient desires breast reconstruction and has elected a tissue licensed certified orthotist style technique. She understands the staged nature of breast reconstruction as well as potential risks and complications related to the surgery, including but not limited to seroma, hematoma, wound healing problems, postoperative infection, among others. She has requested I perform the surgery. OPERATIVE PROCEDURE SUMMARY: The patient was seen in the presurgical area. Markings made. Procedure reviewed. All questions answered. She was transported to the operating room, where she was placed in supine position. Following induction of general endotracheal anesthesia, the patient was prepped and draped in usual fashion. Dr. Treadwell and her team then proceeded with the right simple mastectomy, left sentinel lymph node biopsy and left simple mastectomy. The sentinel lymph node biopsy was negative for cancer. Once Dr. Rose Escoto had completed her procedures, I was contacted to come to the operative suite. Again the patient was under general endotracheal anesthesia in supine position. All sponge and needle counts from prior procedures were correct. Laparotomy pads placed in the right and left mastectomy sites were now removed, irrigations performed on each side. There was no active bleeding. Breast reconstruction was initiated on the right side identifying the pectoralis major muscle where it joined the chest wall on the lateral aspect. Loose areolar connective tissue was divided with cautery here, and then this allowed entry into the potential plane between the pectoralis major and minor muscles which was bluntly developed. Medial attachment fibers of the pectoralis major muscle to the ribs were released with cautery as well as medial sternal attachments to a degree. Inferiorly all attachments of the pectoralis major muscle to ribs were released with cautery. To obtain sufficient submuscular location for reconstruction of the licensed certified orthotist required a larger muscle flap with additional muscle components inferomedially muscle and fascia inferolaterally, external abdominal oblique muscle and fascia laterally. Portions of serratus muscle and fascia were elevated off the chest wall. Once a sufficient-sized submuscular reconstructive cavity was achieved, dissection stopped, irrigations performed, hemostasis maintained with cautery. Excellent hemostasis was obtained. The cavity was packed open with laparotomy sponges. Attention was turned toward the left side. The left pectoralis major muscle was identified, as was its lateral border where it joined the chest wall. Loose areolar connective tissue was divided with cautery here, allowing entry into the potential plane between the pectoralis major and minor muscles which was bluntly developed. Medial attachment fibers of the pectoralis muscle to ribs and some sternal attachments were released with cautery. All inferior attachment of the pectoralis major muscle to ribs was released with cautery. Again additional muscle tissue was required for complete coverage of the licensed certified orthotist inferomedially. Rectus abdominis muscle and fascia inferolaterally, external abdominal oblique muscle and fascia and laterally serratus anterior muscle and fascia were all elevated until sufficient-sized submuscular reconstructive space was created. Once this was achieved, dissection stopped, irrigation was performed. Hemostasis was excellent. The cavities were sized for symmetry and minor adjustments made. The cavities were then sized. Gloves were now changed. Tissue expanders were opened onto the field. The right-sided tissue licensed certified orthotist was placed first. Both expanders were from the [employer] model line, high profile. Both expanders had the same reference number: [id number]. The right-sided serial number was [id number]. The left-sided serial heartburn was [id number]. Once the right side was opened, the licensed certified orthotist was irrigated. Prior to touching the licensed certified orthotist, new gloves were obtained. The licensed certified orthotist was only handled briefly by the surgeon, extracting all air and instilling 50 mL of 0.9 normal saline. It was inserted in the reconstructive cavity. Orientation was assured under direct vision. The left-sided licensed certified orthotist were then opened in the same fashion. All air was extracted and 50 mL of 0.9 normal saline was instilled. It was inserted directly into the reconstructive cavity. Orientation ensured under direct vision. Care was taken to optimize symmetrical position of the expanders. The muscle flap tissue could not be closed on either side without severe tension. Therefore SurgiMend reconstructive graft was opened on the field measuring 10 x 15 cm, then fenestrated. Once revitalized with room-temperature saline, the graft was divided into equal portions crosswise and placed in the reconstructive cavity to span the area where the muscle flap could not be approximated as well as to buttress muscle flap tissue. The graft was placed over the licensed certified orthotist but deep to the muscle and then inset to the muscle flap tissue using interrupted and short running 3-0 Vicryl sutures on each side. Complete coverage of each licensed certified orthotist was obtained. Irrigation was performed. Hemostasis remained excellent. Cody channel drains, 19 round, were inserted in each reconstructive cavity above the muscle flaps below the skin flaps and brought out through separate stab incisions in the right or left anterior left chest wall. Suture placed with 2-0 Prolene. Next the additional saline was instilled in each licensed certified orthotist to optimize tension placed on the muscle graft. A final volume of 250 mL was achieved in each tissue licensed certified orthotist. The circumareolar mastectomy incisions were now closed; the deep dermis using deep dermal pursestring suture of 2-0 Prolene followed by finer approximation of the dermis using inverted interrupted 4-0 Monocryl and then completing the skin closure with jaky. The surgical field was cleansed with saline and dried and postoperative bandages placed using 4x4s, Kerlix squares secured with 3M Medipore tape. The patient was then awakened from her anesthetic, extubated and transferred to the recovery room in good condition with stable vital signs. The estimated blood loss was 50 mL for the total procedure. There were no complications. MMODL / IJN: [id number] /
[2019-06-01 21:13] VITALS: BMI 31.8
[2019-06-02] MEDS: HYDROmorphone 1 MG/ML 1 ML SYRINGE IVP PRN ×3 (00:36→08:34)
[2019-06-02] MEDS: HEPARIN SODIUM,PORCINE 5,000 UNIT/ML 1 ML VIAL SQ SCH ×2 (00:36→08:00)
[2019-06-02] MEDS: DEXTROSE 5%-0.45% NACL 1,000 ML IV SCH (00:38)
[2019-06-02] MEDS: HYDROcodone/APAP 5-325MG 1 EACH TAB PO PRN ×2 (07:43→11:53)
[2019-06-02 09:00] LABS: Basophils # (A) 0.1 k/uL (0-0.2); Basophils % (A) 1 %; Eosinophils # (A) 0.3 k/uL (0-0.7); Eosinophils % (A) 2 %; HCT 38.8 % (34.0-46.0); HGB 13.2 gm/dL (11.4-16.0); Lymphocytes # (A) 1.6 k/uL (1.0-4.8); Lymphocytes % (A) 12 %; MCV 91.1 fL (80.0-100.0); Mean Platelet Volume 6.8; Monocytes # (A) 0.6 k/uL (0-1.0); Monocytes % (A) 5 %; Neutrophils # (A) 10.4 k/uL (1.3-7.7); Neutrophils % (A) 79 %; Platelet Count 320 k/uL (150-450); RBC 4.26 m/uL (3.80-5.40); RDW 12.4 % (11.5-15.5); WBC 13.1 k/uL (3.8-10.6)
[2019-06-02 09:13] VITALS: BP 103/66; TEMP 98
[2019-06-02 10:31] VITALS: PULSE 86
[2019-06-02] MEDS ORDERED: LIDOCAINE 1% INJ 10MG/ML (20 ML MDV) ONE (10:40)
--- NOTE | 2019-06-02 11:54 | P.PN ---
Subjective Progress Note Date: 06/02/19 Principal diagnosis: Postoperative #1 bilateral mastectomy with left sentinel node biopsy, immediate subpectoral implant reconstruction The patient is a 53-year-old white female status post bilateral mastectomy, left sentinel node biopsy, and subpectoral implant reconstruction. Postoperatively the patient is doing well with no complaints. Initially postoperative yesterday she was noted to have some difficulty with keeping the Milton-Jiang drain in the left to suction. This however has resolved and is staying dissection without difficulty. Drainage is serosanguineous in nature. Left ALEJANDRA 15 mL, right ALEJANDRA 10 mL. Lopressor count 13.1 hemoglobin 13.2. Objective - Vital Signs Vital signs: Vital Signs Temp 98.0 F 06/02/19 08:46 Pulse 64 06/02/19 08:46 Resp 16 06/02/19 08:46 BP 103/66 06/02/19 08:46 Pulse Ox 95 06/02/19 08:46 Intake & Output 06/01/19 06/02/19 06/02/19 18:59 06:59 18:59 Intake Total 2150 500 Output Total 500 1205 25 Balance 1650 -705 -25 Weight 92.533 kg Intake: IV 2150 Oral 500 Output: Drainage 105 25 left breast 70 15 right breast 35 10 Urine 450 1100 Estimated Blood Loss 50 Other: Voiding Method Toilet Toilet - Constitutional General appearance: Present: average body habitus - EENT Eyes: Present: EOMI ENT: Present: hearing grossly normal - Neck Neck: Present: normal ROM - Respiratory Respiratory: bilateral: CTA - Cardiovascular Rhythm: regular Heart sounds: normal: S1, S2 - Integumentary Integumentary: Present: normal turgor - Musculoskeletal Musculoskeletal: Present: gait normal - Psychiatric Psychiatric: Present: A&O x's 3, appropriate affect - Additional findings Additional findings: Incisions bilateral clean and dry Incision left axilla clean and dry ALEJANDRA drains proceed to suction without difficulty, drainage serous in nature - Labs CBC & Chem 7: 06/02/19 08:41 Labs: Abnormal Lab Results - Last 24 Hours (Table) 06/02/19 Range/Units 08:41 WBC 13.1 H (3.8-10.6) k/uL Neutrophils # 10.4 H (1.3-7.7) k/uL Assessment and Plan Assessment: Impression: 1. Patient stable postop day #1 bilateral mastectomy with subpectoral implant reconstruction and left axillary sentinel node biopsy 2. Blood pressure normal/patient seen by Dr. correa Plan: 1. Discharge home if okay with Dr. correa 2. Blood pressure medication as per Dr. correa 3. Teach patient drain care 4. Follow-up with Dr. Lockhart in 1 week
--- NOTE | 2019-06-02 11:58 | P.DS ---
Providers Date of admission: 06/02/19 02:14 Attending physician: Norm Amanda Consults: 06/01/19 12:07 Consult Physician Routine Consulting Provider: Glenroy Roger Consult Reason/Comments: medical managment Do you want consulting provider notified?: Yes Primary care physician: [facility] Course: Patient is status post bilateral mastectomy with subpectoral implant reconstruction left axillary sentinel node biopsy. She is doing well with no complaints at this time. Last evening there was some difficulty with keeping the left ALEJANDRA drain to suction which resolved. The patient additionally was noted to have low normal blood pressure and blood pressure medications for home are being determined by internal medicine/Dr. correa. Plan - Discharge Summary Discharge Rx Participant: Yes New Discharge Prescriptions: No Action Lisinopril [Zestril] 5 mg PO QAM Chlorthalidone 25 mg PO QAM Discharge Medication List Chlorthalidone 25 mg PO QAM 03/23/19 [History] Lisinopril [Zestril] 5 mg PO QAM 03/23/19 [History] Follow up Appointment(s)/Referral(s): Tatyana Treadwell MD [STAFF PHYSICIAN] - 1 Week Norm Amanda MD [STAFF PHYSICIAN] - 3 Days Activity/Diet/Wound Care/Special Instructions: Teach patient drain care Blood pressure medication as per Dr. correa Patient may shower after [address] until seen by Dr. Lockhart Discharge Disposition: HOME SELF-CARE
--- NOTE | 2019-06-02 21:36 | P.CONS ---
History of Present Illness - Reason for Consult Consult date: 06/02/19 Medical management Requesting physician: Tatyana Treadwell - Chief Complaint Breast surgery - History of Present Illness Consultation: This is a very pleasant 53-year-old patient of Dr. Shani Bruce. She was diagnosed with cancer of the left breast. Patient has undergone bilateral mastectomy. With left-sided sentinel node biopsy. Patient informs me it was negative. Postprocedure patient has some pain of the operative site. Patient's score bilateral drains. Very slight nausea. Did tolerate some breakfast this morning. Has been out of bed. No dizziness no lightheadedness. Feels slightly tired. 2 family members are present. Review of systems: GEN.: None EYES: None HEENT: None NECK: None RESPIRATORY: None CARDIOVASCULAR: None GASTROINTESTINAL: None GENITOURINARY: None MUSCULOSKELETAL: . At operative site LYMPHATICS: None HEMATOLOGICAL: None PSYCHIATRY: None NEUROLOGICAL: None Past medical history to include: Hypertension, left breast cancer Social history: Does not smoke. Alcohol occasionally. Lives with her boyfriend. Works for the [employer] for [employer] services Family history: Cancer Physical examination: VITAL SIGNS: [98, 64, 16, 103/66, 95% room air GENERAL: BMI 32, propped up in bed, comfortable. EYES: Pupils equal. Conjunctiva normal. HEENT: External appearance of nose and ears normal, oral cavity grossly normal. NECK: JVD not raised; masses not palpable. HEART: First and second heart sounds are normal; no edema. LUNGS: Respiratory rate normal; clear to auscultation. ABDOMEN: Soft, nontender, liver spleen not palpable, no masses palpable. PSYCH: Alert and oriented x3; mood and affect normal. NEUROLOGICAL: Cranial nerves grossly intact; no facial asymmetry, power and sensation grossly intact. LYMPHATICS: No lymph nodes palpable in the and neck CHEST wall: Dressing around the chest wall. With bilateral drains INVESTIGATIONS, reviewed in the clinical context: White count 13.1 hemoglobin 13.2 platelets 320 Assessment: -Bilateral mastectomy, left central node biopsy for left breast DCIS -Leukocytosis, reactive from surgery no click limited to infection -Obesity BMI 32 -Essential hypertension Plan: Care was discussed with the patient. Systolic blood pressures running low side. Educated the nurse to place the patient's discharge papers to hold the patient to hold of the blood pressure medications for now. Recheck blood pressure everyday. When systolic blood pressure goes above 120 then to resumed the blood pressure medications. Follow-up with PCP in 7-[address] Richy hills Past Medical History Past Medical History: Cancer, Hypertension Additional Past Medical History / Comment(s): Current left breast cancer. History of Any Multi-Drug Resistant Organisms: None Reported Past Surgical History: Orthopedic Surgery Additional Past Surgical History / Comment(s): left foot surgery. surgery for ectopic . double mastectomy with left lymphnode biopsy and expanders 06/01/2019 Past Anesthesia/Blood Transfusion Reactions: No Reported Reaction Past Psychological History: Anxiety Additional Psychological History / Comment(s): HX of situational Anxiety. Smoking Status: Never smoker Past Alcohol Use History: Occasional Past Drug Use History: None Reported - Past Family History Father Family Medical History: Cancer Medications and Allergies Home Medications Medication Instructions Recorded Confirmed Type Chlorthalidone 25 mg PO QAM 03/23/19 06/01/19 History Lisinopril [Zestril] 5 mg PO QAM 03/23/19 06/01/19 History Allergies Allergy/AdvReac Type Severity Reaction Status Date / Time No Known Allergies Allergy Verified 06/01/19 23:34 Physical Exam Vitals: Vital Signs Temp Pulse Pulse Pulse Resp BP BP 06/02/19 08:46 98.0 F 64 16 103/66 06/02/19 08:20 86 64 06/02/19 00:00 97.7 F 71 16 113/73 06/01/19 20:45 67 16 06/01/19 20:10 98.9 F 67 16 102/61 06/01/19 19:00 86 86 12 111/74 06/01/19 16:50 86 16 108/67 06/01/19 16:35 83 16 110/70 06/01/19 16:05 84 16 111/70 06/01/19 15:50 81 16 110/70 06/01/19 15:35 78 16 106/68 06/01/19 15:20 97.4 F L 79 16 108/68 06/01/19 14:45 79 16 103/59 06/01/19 14:30 83 16 99/54 06/01/19 14:15 92 16 110/57 06/01/19 14:00 89 16 115/55 06/01/19 13:52 97.1 F L 99 16 118/58 Pulse Ox 06/02/19 08:46 95 06/02/19 08:20 06/02/19 00:00 96 06/01/19 20:45 06/01/19 20:10 95 06/01/19 19:00 06/01/19 16:50 96 06/01/19 16:35 96 06/01/19 16:05 97 06/01/19 15:50 96 06/01/19 15:35 92 L 06/01/19 15:20 06/01/19 14:45 100 06/01/19 14:30 100 06/01/19 14:15 100 06/01/19 14:00 100 06/01/19 13:52 100 Intake and Output 06/01/19 06/02/19 06/02/19 22:59 06:59 14:59 Intake Total 500 Output Total 575 630 25 Balance -75 -630 -25 Intake: Oral 500 Output: Drainage 25 80 25 left breast 15 55 15 right breast 10 25 10 Urine 550 550 Other: Voiding Method Toilet Toilet Results CBC & Chem 7: 06/02/19 08:41 Labs: Abnormal Lab Results - Last 24 Hours (Table) 06/02/19 Range/Units 08:41 WBC 13.1 H (3.8-10.6) k/uL Neutrophils # 10.4 H (1.3-7.7) k/uL
== END 2019-06-02 15:33 | disposition home or self-care (01) ==
LOC: OR 07:39 → 6PED 14:01 → OR 06-02 02:13 → 6PED 06-02 02:14
PROVIDERS: ADMIT Surgery; ATTEND Surgery
DX: D05.12 Intraductal carcinoma in situ of left breast (principal); Z80.9 Family history of malignant neoplasm, unspecified; Z68.32 Body mass index [BMI] 32.0-32.9, adult; E66.9 Obesity, unspecified; I10 Essential (primary) hypertension; F41.9 Anxiety disorder, unspecified; Z79.899 Other long term (current) drug therapy; Z82.49 Family history of ischemic heart disease and other diseases of the circulatory system; Z80.52 Family history of malignant neoplasm of bladder; Z80.42 Family history of malignant neoplasm of prostate; Z80.8 Family history of malignant neoplasm of other organs or systems; Z80.6 Family history of leukemia
CPT/HCPCS: 81025; 85025; 88342; 88331; 88307; 88341; 38792; 19303 ×2; 19357 ×2; G0378; C1763; A9520; J2250; J1644 ×2; J1100; J0690 ×3; J2405; J2001; J3010; J1170 ×3; J2370; J0330; J2704

== ENCOUNTER → 2019-06-11 | Outpatient (CLI) | payer BC ==
[2019-06-11 07:39] VITALS: BP 119/76; PULSE 78; RESP 18; TEMP 98.4; BMI 32.1
--- NOTE | 2019-06-11 07:55 | P.PN ---
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 Lymph node seminal was negative. Right breast revealed lobular carcinoma in situ. Postoperatively the patient is doing fine without complaints. The patient has minimal drainage from the right ALEJANDRA drain, but continues to have moderate drainage from the left ALEJANDRA drain. The patient has not had any fever or chills. Physical examination: Lungs: Clear Heart: Regular rate and rhythm Bilateral incisions in the breasts clean and dry, incision under the left arm clean and dry ALEJANDRA right us in 10 mL for several days in a row, ALEJANDRA left approximately 87 mL for the last several days per day Impression: 1. Stage 0 left breast cancer patient status post bilateral skin sparing mastectomy with left sentinel node biopsy and immediate subpectoral implant reconstruction. 2. Right ALEJANDRA drain ready for removal, left ALEJANDRA drain to stay in place 3. Patient to have appointment with medical oncology to determine if there is any benefit from an anti-hormonal agent 4. Follow-up with Dr. Amanda 5. Follow up here in 3-4 months Cc: Dr. Bruce
== END ==
LOC: WWCWWP 07:20
PROVIDERS: ATTEND Surgery
DX: Z53.9 Procedure and treatment not carried out, unspecified reason (principal)

== ENCOUNTER → 2023-11-25 | Outpatient (CLI) | payer BC ==
[2023-11-25 14:29] VITALS: BP 108/73; PULSE 82; RESP 16; TEMP 98
--- NOTE | 2023-11-25 14:52 | P.SLEEP ---
History of Present Illness H&P Date: 11/25/23 58-year-old female patient referred to me for sleep apnea evaluation. The patient works at the [employer] and the reason she has been feeling very much fatigued and sleepy. Her current [place] score is at 7. No recent weight gain. According to her bed partner, she has very loud snoring. She wakes up occasionally choking and gasping for air. She does have some grinding of the teeth. She wakes up excessively fatigued and sleepy and not refreshed. She goes to bed around 11 PM and wakes up 7:30 AM in the morning. On weekends, her sleep schedule is between 2 AM and 10 AM. She is waking up tired however she is having issues with memory and concentration. No substance abuse. No head trauma. No history of stroke. No congestion heart failure. She is known to have hypertension and she is currently on 2 different blood pressure medication. No recent weight gain. No nocturnal chest pain or heartburn or shortness of breath. No personal or family history of obstructive sleep apnea. No history of any motor vehicle accidents because of feeling drowsy or sleepy. She is a known breather. Patient prefers to sleep on her side. Does not take any naps during the day. No sleep paralysis. No hallucinations. No cataplexy. Review of Systems Constitutional: Reports daytime sleepiness, Reports fatigue Eyes: denies as per HPI, denies blurred vision, denies bulging eye, denies decreased vision, denies diplopia, denies discharge, denies dry eye, denies irritation, denies itching, denies pain, denies photophobia, denies loss of peripheral vision, denies loss of vision, denies tunnel vision/blind spots Ears: deny: decreased hearing, ear discharge, earache, tinnitus Ears, nose, mouth and throat: Reports as per HPI Breasts: absent: as per HPI, change in shape, gynecomastia, masses, nipple discharge, pain, skin changes, swelling Cardiovascular: Reports as per HPI Respiratory: Reports snoring Gastrointestinal: Reports as per HPI Genitourinary: Reports as per HPI Menstruation: Reports as per HPI Musculoskeletal: Reports as per HPI Musculoskeletal: absent: ankle pain, ankle stiffness, ankle swelling Integumentary: Reports as per HPI Neurological: Reports as per HPI Psychiatric: Reports as per HPI Endocrine: Reports as per HPI, Reports fatigue Hematologic/Lymphatic: Reports as per HPI Allergic/Immunologic: Reports as per HPI Past Medical History Past Medical History: Cancer, Hypertension Additional Past Medical History / Comment(s): History of mastectomy followed by breast reconstruction surgery. She had early stage breast cancer. History of Any Multi-Drug Resistant Organisms: None Reported Past Surgical History: Orthopedic Surgery Additional Past Surgical History / Comment(s): left foot surgery. surgery for ectopic . double mastectomy with left lymphnode biopsy and expanders 06/01/2019 Past Anesthesia/Blood Transfusion Reactions: No Reported Reaction Past Psychological History: Anxiety, Depression Additional Psychological History / Comment(s): HX of situational Anxiety., possibly SAD also-nothing diagnosed. Smoking Status: Never smoker Past Alcohol Use History: Occasional Past Drug Use History: None Reported - Past Family History Father Family Medical History: Cancer Additional Family Medical History / Comment(s): Breast, bilateral breast implants. Medications and Allergies Home Medications Medication Instructions Recorded Confirmed Type Chlorthalidone 25 mg PO QAM 03/23/19 11/25/23 History lisinopriL [Zestril] 5 mg PO QAM 03/23/19 11/25/23 History Allergies Allergy/AdvReac Type Severity Reaction Status Date / Time No Known Allergies Allergy Verified 06/11/19 07:35 Physical Exam Vitals: Vital Signs Temp Pulse Resp BP Pulse Ox 11/25/23 14:10 98.0 F 82 16 108/73 99 Intake and Output 11/24/23 11/25/23 11/25/23 22:59 06:59 14:59 Other: Weight 90.038 kg The patient appeared well nourished and normally developed. Vital signs as documented. Head exam is unremarkable. No scleral icterus or corneal arcus noted. Neck is without jugular venous distension, thyromegaly, or carotid bruits. Carotid upstrokes are brisk bilaterally. Lungs are clear to auscultation and percussion. Cardiac exam reveals the PMI to be normally sized and situated. Rhythm is regular. First and second heart sounds normal. No murmurs, rubs or gallops. Abdominal exam reveals normal bowel sounds, no masses, no organomegaly and no aortic enlargement. Extremities are nonedematous and both femoral and pedal pulses are normal. Examination of the skin revealed no evidence of significant rashes, suspicious appearing nevi or other concerning lesions. Neurologically, the patient is awake and alert and the patient does not have any focal neurological deficit. Cranial nerves are essentially intact. Assessment and Plan Plan: Chronic fatigue/hypersomnia with an Blue [place] score of 7. Suspect obstructive sleep apnea. Also suspect an underlying component of insufficient sleep syndrome. Loud snoring along with sleep fragmentation. Hypertension History of breast cancer Plan Continue with the patient had a lengthy discussion regarding her sleep qualities. The patient is to extend her sleep hours. Patient has good sleep hygiene measures in general. Possibility of obstructive sleep apnea cannot be completely ruled out. The patient will be set up for a home sleep study to evaluate for an underlying obstructive sleep apnea and will make further recommendation on treatment options. Encourage weight loss. Maintain regular sleep schedule. Extend sleep hours. Will continue to follow. Sleep Note - Sleep Data ESS Total: 7 - Sleep Note Sleep Note: Temperature: 98.0 F Pulse Rate: 82 Respiratory Rate: 16 Blood Pressure: 108/73 SpO2: 99 Height: 5 ft 5.7 in Weight: 90.038 kg BMI: Neck Circumference: 16
== END ==
LOC: 3 N SLEEP 13:24
PROVIDERS: ATTEND Internal Medicine Critical Care Medicine
DX: G47.10 Hypersomnia, unspecified (principal); R53.82 Chronic fatigue, unspecified; R06.83 Snoring; G47.8 Other sleep disorders; I10 Essential (primary) hypertension; Z85.3 Personal history of malignant neoplasm of breast; Z79.899 Other long term (current) drug therapy
CPT/HCPCS: 99211